=== PATIENT | female | born 1985 | race African-American/Black ===

== ENCOUNTER 2016-05-14 05:31 | Day surgery (SDC) | payer OTHER ==
[2016-05-13 14:25] LABS: HEMATOCRIT 38.7 % (36.0-48.0); HEMOGLOBIN 12.5 g/dL (12-16); MCH 27.8 pg (26.0-34.0); MCHC 32.3 g/dL (31.0-37.0); MEAN PLATELET VOLUME 11.8 fL (7.4-10.4); RBC 4.5 10x6/uL (4.00-5.40); RDW 13.5 % (11.5-14.5); WBC 7.4 10x3/uL (4.8-10.8)
[2016-05-13 14:42] LABS: CALC OSMOLALITY 277 mosm/kg (275-300); CALCIUM 9.1 mg/dL (8.5-10.1); CARBON DIOXIDE 26.3 mmol/L (21.0-32.0); CHLORIDE - SERUM 104 mmol/L (98-107); CREATININE - SERUM 0.7 mg/dL (0.6-1.3); POTASSIUM - SERUM 4.2 mmol/L (3.5-5.1); SODIUM 141 mmol/L (136-145); UREA NITROGEN 9 mg/dL (7-18); eGFR NON AFRICAN AMERICAN > 90 mL/min (90-120)
[2016-05-13 14:44] LABS: GLUCOSE 67 mg/dL (74-106)
[~2016-05-14] VITALS: Ht 167.6 cm; Wt 86.2 kg
[~2016-05-14 05:31] MED LIST: FOLIC ACID1 MG PO; IBUPROFEN800 MG PO; PREDNISONE5 MG PO; TREXALL15 MG PO
[2016-05-14 10:49] VITALS: BP 118/68; Ht 167.6 cm; Wt 86.2 kg
[2016-05-14 10:57] LABS: HCG URINE NEGATIVE (NEGATIVE)
--- NOTE | 2016-05-14 17:56 | NUR ---
1600 PT WAITNG ON RIDE 1630 IV DC WITH CATHER TIP INTACT
--- NOTE | 2016-06-15 13:17 | OP ---
PATIENT NAME: JOHANA YOUNG MEDICAL RECORD: [id number] :87 LOCATION:D[facility] ADMISSION DATE: SURGEON: ANKUR PANTOJA DATE OF OPERATION: 05/14/2016 SURGEON: Ankur Pantoja DPM. PREOPERATIVE DIAGNOSIS: Osteoarthritis of the talonavicular joint, right foot. POSTOPERATIVE DIAGNOSIS: Osteoarthritis of the talonavicular joint, right foot. PROCEDURE: Arthrodesis, talonavicular joint, right foot. ANESTHESIA: General. HEMOSTASIS: Pneumatic ankle tourniquet inflated to 250 mmHg for 1 hour. ESTIMATED BLOOD LOSS: Minimal. MATERIALS: Two 4.3 mm cannulated Air Button screws, 3-0 Vicryl, 4-0 nylon. INJECTABLES: 20 cc of 0.5% bupivacaine plain. The patient has longstanding history of pain associated with the talonavicular joint of the right foot. She has tried orthotics to no avail. She continues to have pain in the area. I have reviewed with her the proposed procedure. Risks and benefits were discussed. Complications were reviewed. Her questions were answered. She was consented for arthrodesis of the talonavicular joint, right foot. The patient was brought in the operating room and placed in the operating table in the supine position. A timeout was called with Dr. Pantoja, who identified the patient, the surgical site, and the surgery to be performed. Once appropriate anesthesia was obtained, the foot was prepped and draped in the usual aseptic manner. The pneumatic ankle tourniquet was inflated to 250 mmHg on the well-padded right ankle. Attention was directed to the medial aspect of the right foot where a 5-cm linear incision was made directly over the talonavicular joint. This incision was carried deep to soft tissue with care being taken to retract all vital neurovascular structures. All bleeders were cauterized along the way. Dissection was carried deep utilizing blunt dissection to the level of the periosteum of the talonavicular joint. All soft tissue structures were then reflected from the talonavicular joint, thus exposing the joint. The joint was inspected and copious erosions were noted on the head of the talus with several joint erosions noted on the navicular side of the joint as well. Next, utilizing a combination of curettes, osteotomes and rongeur, all remaining cartilage was removed from both sites of the joint. The joint was placed in appropriate position and temporary fixation was obtained utilizing 2 K-wires from the [employer] set. Proper placement of the K-wires was confirmed via C-arm. Next, utilizing champion of sustainable design's recommended technique, two 4.3 mm cannulated screws were placed across the talonavicular OPERATIVE REPORT [id number] JOHANA YOUNG joint. The temporary K-wires were then removed. C-arm was then used to confirm proper placement of the screws. The surgical site was then irrigated with copious amounts of normal sterile saline via bulb syringe. The periosteum was then reapproximated and coapted utilizing 3-0 Vicryl. The subQ was then reapproximated and coapted utilizing 3-0 Vicryl. The skin was then reapproximated and coapted using 4-0 nylon. A dressing consisting of Xeroform, 4 x 4, Kerlix, and Leland bandage and posterior splint was then applied to the right foot. The pneumatic ankle tourniquet was deflated and capillary refill time was noted to be immediate to all digits of the right foot. The patient tolerated the procedure and anesthesia well. She left the operating room with vital signs stable and capillary refill time intact. The patient was discharged home with instructions to ice and elevate the right foot. She is to be strictly nonweightbearing utilizing crutch and knee scooter. She has my cell phone number for any after hour difficulties. There were no complications with this procedure. TRANSINT:[id number] Voice Confirmation ID: [id number] DOCUMENT ID: [id number] ANKUR PANTOJA at 1317 CC: [id number] DICTATION DATE: 05/14/16 1627 ALARM OPERATOR: 05/14/16 2326 [facility] 05/14/16 [place] [id number]
== END 2016-05-14 17:00 | disposition home or self-care (01) ==
LOC: D.OPS 05:31 → D.PAN 12:30 → D.OPS 12:30
PROVIDERS: Anesthesiology; Podiatrist
DX: M19.071 Primary osteoarthritis, right ankle and foot (principal)

== ENCOUNTER 2017-02-04 10:07 | Day surgery (SDC) | payer OTHER ==
[~2017-02-04] VITALS: Ht 170.2 cm; Wt 86.2 kg
[2017-02-04 10:50] LABS: HEMATOCRIT 36.8 % (36.0-48.0); HEMOGLOBIN 11.8 g/dL (12-16); MCH 26.7 pg (26.0-34.0); MCHC 32.1 g/dL (31.0-37.0); MCV 83.3 fL (80.0-100.0); MEAN PLATELET VOLUME 11.1 fL (7.4-10.4); RBC 4.42 10x6/uL (4.00-5.40); RDW 13.6 % (11.5-14.5); WBC 12.6 10x3/uL (4.8-10.8)
[2017-02-04] MEDS ORDERED: HUMIRA20 MG/0.4 SQ (10:51)
[2017-02-04 10:53] VITALS: BP 114/68; Ht 170.2 cm; Wt 86.2 kg
[2017-02-04 10:58] LABS: HCG URINE NEGATIVE (NEGATIVE)
[2017-02-04 11:20] LABS: CALC OSMOLALITY 277 mosm/kg (275-300); CALCIUM 9.1 mg/dL (8.5-10.1); CARBON DIOXIDE 27.5 mmol/L (21.0-32.0); CHLORIDE - SERUM 105 mmol/L (98-107); CREATININE - SERUM 0.7 mg/dL (0.6-1.3); GLUCOSE 84 mg/dL (74-106); POTASSIUM - SERUM 3.7 mmol/L (3.5-5.1); SODIUM 140 mmol/L (136-145); UREA NITROGEN 13 mg/dL (7-18); eGFR NON AFRICAN AMERICAN > 90 mL/min (90-120)
--- NOTE | 2017-02-04 16:47 | NUR ---
1605 PATIENT RESTING RESP EVEN AND NONLABORED. LEFT LEG DRESSING C/D/I ICE ON AND FOOT ELEVATED. DENIES PAIN. 2 SCRIPTS WERE GIVEN TO FAMILT AND ALREADY TAKEN TO PHARMACY.
--- NOTE | 2017-02-04 18:06 | NUR ---
1635 TOLERATED FULL LIQUIDS LEFT ANKLE LOWER LEG ELEVATED AND ICED.
--- NOTE | 2017-02-04 18:09 | NUR ---
1710 TO HOME VIA W/C WITH FAMILY ALREADY WAS GIVEN 2 SCRIPTS BY DOCTOR AND PICKED THEM UP PAIN MED AND ANTIBIOTIC.
--- NOTE | 2017-02-04 18:09 | NUR ---
1705 AFTER VOIDED IV DCD CATHETER INTACT. WENT OVER DISCHARGE INSTRUCTIONS AND VERBALLY UNDERSTANDS.
--- NOTE | 2017-03-17 14:50 | OP ---
PATIENT NAME: JOHANA YOUNG MEDICAL RECORD: [id number] :87 LOCATION:[facility] ADMISSION DATE: SURGEON: JESSIE PANTOJA DATE OF OPERATION: 02/04/2017 DATE OF OPERATION: 02/04/2017 SURGEON: Jessie Pantoja DPM PREOPERATIVE DIAGNOSIS: Osteoarthritis, left talonavicular joint. POSTOPERATIVE DIAGNOSIS: Osteoarthritis, left talonavicular joint. PROCEDURE: Talonavicular joint arthrodesis, left foot. ANESTHESIA: General. HEMOSTASIS: Pneumatic ankle tourniquet inflated to 250 mmHg. ESTIMATED BLOOD LOSS: Minimal. MATERIALS: Two 4.3 mm cannulated Beeminder headless screws. INJECTABLES: 20 cc of 0.5% Marcaine plain. INDICATION FOR PROCEDURE: The patient has a longstanding history of pain associated with the talonavicular joint of the left foot. She has previously undergone arthrodesis of the talonavicular joint on the right foot and did quite well. She is here today for the same procedure. We have discussed risks and benefits and complications were reviewed. Her questions were answered. She was appropriately consented for the above-mentioned procedures. PROCEDURE IN DETAIL: The patient was brought into the operating room and placed on the operating table in supine position. A timeout was called with Dr. Pantoja, who identified the patient, the surgical site, and the surgery to be performed. Once appropriate anesthesia was obtained, the foot was prepped and draped in the usual aseptic manner. The pneumatic ankle tourniquet was inflated to 250 mmHg on a well-padded left ankle. Attention was directed to the medial aspect of the left foot where an 8 cm linear incision was made proximally from the base of the first metatarsal to the talar neck area. This incision was carried deep to soft tissue with care being taken to retract all vital neurovascular structures. All bleeders were cauterized along the way. The periosteum was then reflected from the talonavicular joint, thus exposing that joint. The joint was inspected and found to be seriously eroded with multiple areas of essentially no cartilage. The residual cartilage was removed with a combination of bekah, curette, and osteotome. The subchondral plate was then drilled with a K-wire. The talonavicular joint was then reduced and temporarily fixated with 2 wires from the set. Next, utilizing manufacture's recommended technique, two 4.3 mm headless screws were placed across the arthrodesis site. Excellent compression was noted across the arthrodesis site. Placement of all hardware was confirmed via C-arm. The surgical site was then irrigated with copious amounts of normal OPERATIVE REPORT [id number] JOHANA YOUNG sterile saline via bulb syringe. The periosteum was then reapproximated and coapted using 3-0 Vicryl. The subQ was then reapproximated and coapted using 3-0 Vicryl. The skin was then reapproximated and coapted using 4-0 nylon. A dressing consisting of Xeroform, 4 x 4's, Kerlix, and an Leland bandage was applied to the left foot. The pneumatic ankle tourniquet was deflated and capillary refill time was immediate to all digits of the left foot. The patient tolerated the procedure and anesthesia well. She left the operating room with vital signs stable and capillary refill time intact. The patient was discharged home with instructions to ice and elevate the left foot. She has a knee scooter and a boot to protect the left foot. She is to be nonweightbearing for the time being. She understands this from her previous right foot surgery. There were no complications with this procedure and she will follow up with me next week. She has my cell phone number for any afterhours difficulties. Prescriptions for Corydon 7.5/325, #30 and Mobic 15 mg, #30 were dispensed. TRANSINT:[id number] Voice Confirmation ID: [id number] DOCUMENT ID: [id number] JESSIE PANTOJA at 1450 CC: [id number] DICTATION DATE: 02/04/17 1531 CERTIFIED LEGAL SECRETARY SPECIALIST: 02/04/17 1724 [facility] 02/04/17 [facility] [address] [place] [id number]
== END 2017-02-04 17:10 | disposition home or self-care (01) ==
LOC: D.OPS 10:07 → D.PAN 12:15 → D.OPS 12:30 → D.PAN 12:30 → D.OPS 17:10
PROVIDERS: Anesthesiology; Podiatrist
DX: M19.071 Primary osteoarthritis, right ankle and foot (principal); M06.9 Rheumatoid arthritis, unspecified; Z01.812 Encounter for preprocedural laboratory examination